=== PATIENT | female | born 1940 | race Caucasian/White ===

== ENCOUNTER 2016-08-09 16:48 | Emergency (ER) | payer OTHER ==
[~2016-08-09] VITALS: Ht 162.6 cm; Wt 77.1 kg
[~2016-08-09 16:48] MED LIST: ALBU0.5N2; ALEN70SO OR; BACL20TA PO; CITA-73 PO; ESOM40CA39 PO; FURO40TA4 PO; LORA-622 PO; LORA-655 PO; NAP500T GT; NOR10T PO; TIOTCAP; VALS40TA2 PO; paroxetine PO
[2016-08-09] MEDS ORDERED: KETOROLAC TROMETH 60MG/2ML VIAL IM ONE (19:30)
[2016-08-09 20:43] VITALS: BP 129/68
== END 2016-08-09 21:55 | disposition home or self-care (01) ==
LOC: EDUNIT# 16:48 → ER 16:53
DX: S52.501A Unspecified fracture of the lower end of right radius, initial encounter for closed fracture (principal); S82.832A Other fracture of upper and lower end of left fibula, initial encounter for closed fracture; J44.9 Chronic obstructive pulmonary disease, unspecified; K21.9 Gastro-esophageal reflux disease without esophagitis; I11.0 Hypertensive heart disease with heart failure; I50.9 Heart failure, unspecified; R51 Headache; F17.210 Nicotine dependence, cigarettes, uncomplicated; Z88.0 Allergy status to penicillin; Z90.710 Acquired absence of both cervix and uterus; W01.0XXA Fall on same level from slipping, tripping and stumbling without subsequent striking against object, initial encounter; Y93.89 Activity, other specified; Y99.8 Other external cause status; Y92.89 Other specified places as the place of occurrence of the external cause
CPT/HCPCS: 29125; 29505; 70450; 73110; 73590; 73600; 96372; 99284; J1885

== ENCOUNTER 2017-07-22 19:31 | Inpatient (IN) | payer OTHER ==
[~2017-07-22] VITALS: Ht 165.1 cm; Wt 74.9 kg
[2017-07-22] MEDS ORDERED: ONDANSETRON HCL 4 MG/2 ML VIAL IV ONE (21:00)
[2017-07-22] MEDS ORDERED: ALBUTEROL SULF 2.5 MG/0.5ML(0.5%) NEB SOLN NEB ONE (21:00)
[2017-07-22] MEDS ORDERED: IPRATROPIUM BROM 0.5 MG/2.5ML INH SOL NEB ONE (21:00)
[2017-07-22] MEDS ORDERED: MORPHINE SULFATE 4 MG/ML SYR/VIAL IV ONE (21:00)
[2017-07-22] MEDS ORDERED: methylPREDNISolone SOD SUCC 125 MG/2 ML VL IV ONE (21:00)
[2017-07-22 21:13] LABS: Basophils # (auto) 0 uL; Hemoglobin 10.7 g/dL (12.2-16.2); White Blood Cell 14.8 10^3/uL (4.4-10.8)
[2017-07-22 21:15] LABS: Basophils % (auto) 0.1 % (0.0-2.0); Eosinophils # (auto) 0 uL; Eosinophils % (auto) 0.2 % (0.0-7.0); Hematocrit 34.8 % (36.0-46.0); Lymphocytes # (auto) 1.4 uL; Lymphocytes % (auto) 9.3 % (10.0-50.0); Mean Corpuscular Hemoglobin 26.3 pg (28.0-32.0); Mean Corpuscular Hgb Conc. 30.9 g/dL (32.0-36.0); Mean Corpuscular Volume 85.2 fL (80.0-100.0); Monocytes % (auto) 6.7 % (0.0-12.0); Neutrophils # (auto) 12.4 uL; Neutrophils % (auto) 83.7 % (37.0-80.0); Nucleated Red Blood Cells % 0.1 %; Red Blood Cells 4.08 10^6/uL (4.0-5.20); Red Cell Distribution Width 15.1 % (11.8-14.3)
[2017-07-22 21:30] LABS: INR 0.99 (0.9-1.15); Partial Thromboplastin Time 25.9 sec (22.64-33.71); Prothrombin Time 10.8 sec (9.37-12.3)
[2017-07-22 21:33] LABS: Albumin 3.1 g/dL (3.4-5.0); BUN/Creatinine Ratio 12.6; Bilirubin, Total 0.4 mg/dL (0.2-1.0); Magnesium 2.3 mg/dL (1.6-2.6); Potassium 4.1 mmol/L (3.5-5.1)
[2017-07-22 22:50] LABS: Urine Bacteria NONE SEEN /hpf (None Seen); Urine Blood Negative /uL (Negative); Urine Hyaline Cast FEW /lpf (0 - 2); Urine Mucus FEW (None Seen); Urine Specific Gravity 1.015 (1.001-1.035); Urine WBC 22 /hpf (0 - 5)
[2017-07-22 23:08] LABS: Platelet Count (auto) 158 10^3/uL (140-450)
[2017-07-23] MEDS ORDERED: MORPHINE SULFATE 4 MG/ML SYR/VIAL IV ONE (01:30)
[2017-07-23] MEDS ORDERED: SODIUM CHLORIDE 0.9% 1,000 ML IV ONE (01:30)
[2017-07-23] MEDS ORDERED: ONDANSETRON HCL 4 MG/2 ML VIAL IV ONE (01:30)
[2017-07-23] MEDS ORDERED: cefTRIAXone 1GM/10ml IVPUSH 10 ML IV ONE (01:30)
[2017-07-23] MEDS ORDERED: ATROPINE SULF 0.5 MG/5ML SYR IV ONE (02:45)
[2017-07-23] MEDS ORDERED: diphenhdrAMINE HCL 50 MG/1 ML VL IV ONE (03:30)
[2017-07-23] MEDS ORDERED: DOCUSATE SOD 100 MG CAP PO PRN (05:00)
[2017-07-23] MEDS ORDERED: NITROGLYCERIN 0.4 MG SL TAB SL PRN (05:00)
[2017-07-23] MEDS ORDERED: MORPHINE SULFATE 4 MG/ML SYR/VIAL IV PRN (05:00)
[2017-07-23] MEDS ORDERED: ACETAMINOPHEN 325 MG TAB PO PRN (05:00)
[2017-07-23] MEDS ORDERED: ONDANSETRON HCL 4 MG/2 ML VIAL IV PRN (05:00)
[2017-07-23 07:40] VITALS: BP 136/55
[2017-07-23 09:17] VITALS: BP 147/63
[2017-07-23 09:40] VITALS: BP 143/107
[2017-07-23] MEDS ORDERED: FUROSEMIDE 40 MG TAB PO SCH (10:00)
[2017-07-23] MEDS ORDERED: LEVOFLOXACIN 500MG 100 ML IV SCH (10:00)
[2017-07-23] MEDS: VALSARTAN 80 MG TAB PO SCH (11:07)
[2017-07-23] MEDS: CITALOPRAM HYDROBR 20 MG TAB PO SCH (11:07)
[2017-07-23] MEDS: ENOXAPARIN SOD 40 MG/0.4 ML SYRINGE SC SCH (11:08)
[2017-07-23] MEDS: FAMOTIDINE 20 MG TAB PO SCH ×2 (11:08→21:36)
[2017-07-23] MEDS: ALBUTEROL SULF 2.5 MG/0.5ML(0.5%) NEB SOLN NEB PRN (13:30)
[2017-07-23] MEDS: IPRATROPIUM BROM 0.5 MG/2.5ML INH SOL NEB PRN ×2 (13:30→18:42)
[2017-07-23] MEDS ORDERED: FUROSEMIDE 20 MG/2 ML VIAL IV ONE (14:00)
[2017-07-23] MEDS: methylPREDNISolone SOD SUCC 40 MG/ML VL IV SCH ×2 (15:41→21:36)
[2017-07-23] MEDS ORDERED: AML5T PO (15:55)
[2017-07-23] MEDS: ALBUTEROL SULF 2.5 MG/0.5ML(0.5%) NEB SOLN NEB SCH (18:42)
[2017-07-23 19:10] VITALS: BP 104/40
[2017-07-23] MEDS: HYDROcodone-ACET 5/325MG TAB PO PRN (19:52)
[2017-07-23 20:00] VITALS: BP 135/71
[2017-07-23 22:15] VITALS: BP 135/71
[2017-07-24] MEDS: IPRATROPIUM BROM 0.5 MG/2.5ML INH SOL NEB PRN ×2 (00:10→16:15)
[2017-07-24] MEDS: ALBUTEROL SULF 2.5 MG/0.5ML(0.5%) NEB SOLN NEB SCH ×3 (00:10→12:31)
[2017-07-24] MEDS: ALBUTEROL SULF 2.5 MG/0.5ML(0.5%) NEB SOLN NEB PRN ×2 (04:10→16:15)
[2017-07-24 04:35] VITALS: BP 158/82
[2017-07-24] MEDS: methylPREDNISolone SOD SUCC 40 MG/ML VL IV SCH ×2 (05:40→14:00)
[2017-07-24] MEDS: HYDROcodone-ACET 5/325MG TAB PO PRN ×2 (05:41→10:15)
[2017-07-24 07:25] LABS: Albumin 2.5 g/dL (3.4-5.0); BUN/Creatinine Ratio 17.7; Bilirubin, Total 0.3 mg/dL (0.2-1.0); Calcium 8.5 mg/dL (8.5-10.1); Magnesium 2.4 mg/dL (1.6-2.6); Potassium 4.5 mmol/L (3.5-5.1); Total Protein 5.8 g/dL (6.4-8.2)
[2017-07-24 07:52] LABS: Basophils # (auto) 0 uL; Basophils % (auto) 0.1 % (0.0-2.0); Eosinophils # (auto) 0 uL; Hematocrit 30.7 % (36.0-46.0); Lymphocytes % (auto) 12.1 % (10.0-50.0); Mean Corpuscular Hemoglobin 26.6 pg (28.0-32.0); Monocytes # (auto) 0.8 uL; Nucleated Red Blood Cells % 0.2 %; Red Cell Distribution Width 14.6 % (11.8-14.3)
[2017-07-24 07:54] LABS: Hemoglobin 9.8 g/dL (12.2-16.2); Mean Corpuscular Hgb Conc. 31.9 g/dL (32.0-36.0); Mean Corpuscular Volume 83.6 fL (80.0-100.0); Neutrophils # (auto) 6.4 uL; Neutrophils % (auto) 77.8 % (37.0-80.0); Red Blood Cells 3.68 10^6/uL (4.0-5.20); White Blood Cell 8.2 10^3/uL (4.4-10.8)
[2017-07-24 08:00] VITALS: BP 156/81
[2017-07-24 08:45] LABS: Platelet Count (auto) 99 10^3/uL (140-450)
[2017-07-24] MEDS ORDERED: FUROSEMIDE 40 MG/4 ML VIAL IV SCH (10:00)
[2017-07-24] MEDS ORDERED: LEVOFLOXACIN 250MG 50 ML IV SCH (10:00)
[2017-07-24] MEDS: FAMOTIDINE 20 MG TAB PO SCH (10:15)
[2017-07-24] MEDS: ENOXAPARIN SOD 40 MG/0.4 ML SYRINGE SC SCH (10:15)
[2017-07-24] MEDS: VALSARTAN 80 MG TAB PO SCH (10:17)
[2017-07-24] MEDS: CITALOPRAM HYDROBR 20 MG TAB PO SCH (10:34)
[2017-07-24 12:11] VITALS: BP 152/84
[2017-07-24 17:00] VITALS: BP 161/80
== END 2017-07-24 16:55 | disposition home or self-care (01) | DRG 871 ==
LOC: ER 19:31 → EDBD 19:31 → TELE 19:32 → TELE-CENTR 07-23 17:56
PROVIDERS: ADMIT Nurse Practitioner; ATTEND Family Medicine
PROC: 5A09357 Assistance with Respiratory Ventilation, Less than 24 Consecutive Hours, Continuous Positive Airway Pressure (ICD-10-PCS; principal; 2017-07-23)
DX: A41.9 Sepsis, unspecified organism (principal); J96.20 Acute and chronic respiratory failure, unspecified whether with hypoxia or hypercapnia; I50.9 Heart failure, unspecified; I11.0 Hypertensive heart disease with heart failure; N39.0 Urinary tract infection, site not specified; W06.XXXA Fall from bed, initial encounter; J44.9 Chronic obstructive pulmonary disease, unspecified; W18.30XA Fall on same level, unspecified, initial encounter; F17.210 Nicotine dependence, cigarettes, uncomplicated; K21.9 Gastro-esophageal reflux disease without esophagitis; I49.8 Other specified cardiac arrhythmias; E66.9 Obesity, unspecified; F32.9 Major depressive disorder, single episode, unspecified; S39.012A Strain of muscle, fascia and tendon of lower back, initial encounter; T78.49XA Other allergy, initial encounter; F41.9 Anxiety disorder, unspecified; K59.00 Constipation, unspecified; Y92.003 Bedroom of unspecified non-institutional (private) residence as the place of occurrence of the external cause; Z82.49 Family history of ischemic heart disease and other diseases of the circulatory system; Z99.81 Dependence on supplemental oxygen; Z90.710 Acquired absence of both cervix and uterus; Z68.27 Body mass index [BMI] 27.0-27.9, adult; Y93.89 Activity, other specified; Y99.8 Other external cause status; Z88.0 Allergy status to penicillin; Z79.899 Other long term (current) drug therapy
CPT/HCPCS: 36415; 36600; 51702; 71045; 74176; 80053; 81001; 82805; 83735; 83880; 84484; 85025; 85610; 85730; 87040; 93005; 93306; 94640; 94660; 96365; 96372; 96375; 97163; J1956; J2405

== ENCOUNTER 2017-07-31 22:00 | Inpatient (IN) | payer OTHER ==
[~2017-07-31] VITALS: Ht 162.6 cm; Wt 66.1 kg
[~2017-07-31 22:00] MED LIST changes: +AML5T PO; -VALS40TA2 PO; -paroxetine PO
[2017-07-31] MEDS ORDERED: SODIUM CHLORIDE 0.9% 1,000 ML IV ONE (23:59)
[2017-08-01 00:32] LABS: Basophils # (auto) 0 uL; Basophils % (auto) 0.1 % (0.0-2.0); Hematocrit 32.8 % (36.0-46.0); Hemoglobin 10.3 g/dL (12.2-16.2); Lymphocytes # (auto) 0.8 uL; Mean Corpuscular Hemoglobin 26.1 pg (28.0-32.0)
[2017-08-01 00:34] LABS: Eosinophils # (auto) 0 uL; Eosinophils % (auto) 0.8 % (0.0-7.0); Lymphocytes % (auto) 14.6 % (10.0-50.0); Mean Corpuscular Hgb Conc. 31.3 g/dL (32.0-36.0); Mean Corpuscular Volume 83.5 fL (80.0-100.0); Monocytes # (auto) 0.9 uL; Monocytes % (auto) 14.9 % (0.0-12.0); Neutrophils % (auto) 69.6 % (37.0-80.0); Platelet Count (auto) 284 10^3/uL (140-450); Red Blood Cells 3.93 10^6/uL (4.0-5.20); Red Cell Distribution Width 14.4 % (11.8-14.3); White Blood Cell 5.7 10^3/uL (4.4-10.8)
[2017-08-01 00:48] LABS: Alanine Aminotransferase 17 U/L (13-56); Albumin 2.6 g/dL (3.4-5.0); Aspartate Aminotransferase 14 U/L (15-37); BUN/Creatinine Ratio 21.4; Blood Alcohol < 3.0 mg/dL (0-5); Blood Urea Nitrogen 30 mg/dL (7-18); Calcium 8.9 mg/dL (8.5-10.1); Chloride 92 mmol/L (98-107); GFR African American 47 mL/min; GFR Non-African American 39 mL/min; Glucose 96 mg/dL (74-106); Magnesium 2.1 mg/dL (1.6-2.6); Potassium 3.3 mmol/L (3.5-5.1); Sodium 141 mmol/L (136-145)
[2017-08-01 00:52] LABS: INR 0.95 (0.9-1.15); Partial Thromboplastin Time 24.7 sec (22.64-33.71); Prothrombin Time 10.3 sec (9.37-12.3)
[2017-08-01 00:54] LABS: Alkaline Phosphatase 69 U/L (45-117); Bilirubin, Total 0.3 mg/dL (0.2-1.0)
[2017-08-01] MEDS ORDERED: methylPREDNISolone SOD SUCC 125 MG/2 ML VL IV ONE (01:00)
[2017-08-01] MEDS ORDERED: IPRATROPIUM BROM 0.5 MG/2.5ML INH SOL NEB ONE (01:00)
[2017-08-01] MEDS ORDERED: ALBUTEROL SULF 2.5 MG/0.5ML(0.5%) NEB SOLN NEB ONE (01:00)
[2017-08-01 01:11] LABS: Anion Gap -5 (5-15)
[2017-08-01 01:14] LABS: CRP High Sensitivity 8.95 mg/dL (< 0.3); Carbon Dioxide 54 mmol/L (21-32)
[2017-08-01] MEDS ORDERED: ENOXAPARIN SOD 60 MG/0.6 ML SYRINGE SC ONE (02:15)
[2017-08-01] MEDS ORDERED: NITROGLYCERIN 0.4MG/HR TOPICAL PATCH TD ONE (02:15)
[2017-08-01] MEDS ORDERED: PIPERACILLIN-TAZO 4.5GM 50 ML IV ONE (02:15)
[2017-08-01] MEDS ORDERED: ASPirin 325 MG TAB PO ONE (02:15)
[2017-08-01] MEDS ORDERED: SODIUM CHLORIDE 0.9% 1,000 ML IV ONE (02:15)
[2017-08-01 05:03] VITALS: BP 140/53
[2017-08-01] MEDS ORDERED: ONDANSETRON HCL 4 MG/2 ML VIAL IV PRN (06:45)
[2017-08-01] MEDS ORDERED: NITROGLYCERIN 0.4 MG SL TAB SL PRN (06:45)
[2017-08-01] MEDS ORDERED: ACETAMINOPHEN 325 MG TAB PO PRN (06:45)
[2017-08-01] MEDS ORDERED: MORPHINE SULFATE 4 MG/ML SYR/VIAL IV PRN (06:45)
[2017-08-01] MEDS: amLODIPine BESYLATE 5 MG TAB PO SCH (10:00)
[2017-08-01] MEDS: LEVOFLOXACIN 250MG 50 ML IV SCH (10:00)
[2017-08-01] MEDS: PANTOPRAZOLE 40 MG TAB PO SCH (10:00)
[2017-08-01] MEDS: FUROSEMIDE 40 MG TAB PO SCH (10:00)
[2017-08-01] MEDS ORDERED: ENOXAPARIN SOD 30 MG/0.3 ML SYRINGE SC SCH (10:00)
[2017-08-01] MEDS: CITALOPRAM HYDROBR 20 MG TAB PO SCH (10:00)
[2017-08-01 12:40] LABS: Albumin 2.4 g/dL (3.4-5.0); BUN/Creatinine Ratio 21.4; Bilirubin, Total 0.6 mg/dL (0.2-1.0); Calcium 8.4 mg/dL (8.5-10.1); Potassium 3.7 mmol/L (3.5-5.1); Total Protein 5.7 g/dL (6.4-8.2)
[2017-08-01 12:45] LABS: Basophils # (auto) 0 uL; Eosinophils # (auto) 0 uL; Hematocrit 30.9 % (36.0-46.0); Hemoglobin 9.6 g/dL (12.2-16.2); Lymphocytes # (auto) 0.3 uL; Lymphocytes % (auto) 6.8 % (10.0-50.0); Mean Corpuscular Hgb Conc. 31.2 g/dL (32.0-36.0); Mean Corpuscular Volume 83.1 fL (80.0-100.0); Monocytes # (auto) 0.1 uL; Monocytes % (auto) 2.5 % (0.0-12.0); Neutrophils # (auto) 4.6 uL; Neutrophils % (auto) 90.7 % (37.0-80.0); Platelet Count (auto) 263 10^3/uL (140-450); Red Blood Cells 3.71 10^6/uL (4.0-5.20); Red Cell Distribution Width 14.6 % (11.8-14.3); White Blood Cell 5.1 10^3/uL (4.4-10.8)
[2017-08-01] MEDS: IPRATROPIUM BROM 0.5 MG/2.5ML INH SOL NEB PRN ×2 (13:15→19:02)
[2017-08-01] MEDS: ALBUTEROL SULF 2.5 MG/0.5ML(0.5%) NEB SOLN NEB PRN ×2 (13:15→19:02)
[2017-08-01] MEDS ORDERED: BACL10TA PO (20:53)
[2017-08-01 20:54] VITALS: BP 136/40
[2017-08-02] MEDS: ALBUTEROL SULF 2.5 MG/0.5ML(0.5%) NEB SOLN NEB PRN (01:29)
[2017-08-02] MEDS: IPRATROPIUM BROM 0.5 MG/2.5ML INH SOL NEB PRN (01:29)
[2017-08-02 05:36] VITALS: BP 148/66
[2017-08-02 06:34] LABS: Basophils # (auto) 0 uL; Eosinophils # (auto) 0 uL; Monocytes # (auto) 0.9 uL; Neutrophils # (auto) 3.7 uL
[2017-08-02 06:40] LABS: Basophils % (auto) 0.8 % (0.0-2.0); Eosinophils % (auto) 0.5 % (0.0-7.0); Hematocrit 29.7 % (36.0-46.0); Hemoglobin 9.3 g/dL (12.2-16.2); Mean Corpuscular Hemoglobin 26.3 pg (28.0-32.0); Mean Corpuscular Hgb Conc. 31.5 g/dL (32.0-36.0); Mean Corpuscular Volume 83.5 fL (80.0-100.0); Monocytes % (auto) 16.3 % (0.0-12.0); Neutrophils % (auto) 64.4 % (37.0-80.0); Platelet Count (auto) 276 10^3/uL (140-450); Red Blood Cells 3.55 10^6/uL (4.0-5.20); Red Cell Distribution Width 14.6 % (11.8-14.3); White Blood Cell 5.8 10^3/uL (4.4-10.8)
[2017-08-02 06:48] LABS: Albumin 2.3 g/dL (3.4-5.0); Potassium 3.3 mmol/L (3.5-5.1)
[2017-08-02 06:51] LABS: Bilirubin, Total 0.2 mg/dL (0.2-1.0); Total Protein 5.5 g/dL (6.4-8.2)
[2017-08-02] MEDS: HYDROcodone-ACET 5/325MG TAB PO PRN ×3 (07:57→22:39)
[2017-08-02 08:20] VITALS: BP 138/56
[2017-08-02] MEDS: LEVOFLOXACIN 250MG 50 ML IV SCH (09:51)
[2017-08-02] MEDS: PANTOPRAZOLE 40 MG TAB PO SCH (09:52)
[2017-08-02] MEDS: CITALOPRAM HYDROBR 20 MG TAB PO SCH (09:52)
[2017-08-02] MEDS: FUROSEMIDE 40 MG TAB PO SCH (09:53)
[2017-08-02] MEDS: amLODIPine BESYLATE 5 MG TAB PO SCH (09:53)
[2017-08-02] MEDS: ENOXAPARIN SOD 40 MG/0.4 ML SYRINGE SC SCH (09:55)
[2017-08-02 11:59] VITALS: BP 131/50
[2017-08-02] MEDS ORDERED: POTASSIUM CHL 10 Meq TABLET PO ONE (14:00)
[2017-08-02 16:29] VITALS: BP 154/62
[2017-08-02 22:00] VITALS: BP 148/65
[2017-08-02] MEDS ORDERED: MIRTAZAPINE 30 MG TAB PO SCH (22:00)
[2017-08-03 04:49] VITALS: BP 146/47
[2017-08-03] MEDS: HYDROcodone-ACET 5/325MG TAB PO PRN ×2 (05:00→09:56)
[2017-08-03] MEDS: IPRATROPIUM BROM 0.5 MG/2.5ML INH SOL NEB PRN (06:29)
[2017-08-03] MEDS: ALBUTEROL SULF 2.5 MG/0.5ML(0.5%) NEB SOLN NEB PRN (06:29)
[2017-08-03 06:42] LABS: Calcium 8.2 mg/dL (8.5-10.1); Potassium 3.2 mmol/L (3.5-5.1)
[2017-08-03 08:58] VITALS: BP 142/51
[2017-08-03] MEDS: FUROSEMIDE 40 MG TAB PO SCH (09:56)
[2017-08-03] MEDS: ENOXAPARIN SOD 40 MG/0.4 ML SYRINGE SC SCH (09:57)
[2017-08-03] MEDS: amLODIPine BESYLATE 5 MG TAB PO SCH (09:57)
[2017-08-03] MEDS: PANTOPRAZOLE 40 MG TAB PO SCH (09:57)
[2017-08-03] MEDS: LEVOFLOXACIN 250MG 50 ML IV SCH (09:57)
[2017-08-03] MEDS: CITALOPRAM HYDROBR 20 MG TAB PO SCH (09:57)
[2017-08-03 13:00] VITALS: BP 123/52
[2017-08-03] MEDS ORDERED: ACETAMINOPHEN/CODEINE#3 (300/30mg) TAB PO PRN (14:00)
[2017-08-03 14:27] VITALS: BP 123/52
== END 2017-08-03 16:00 | disposition home or self-care (01) | DRG 183 ==
LOC: EDBD 22:00 → ER 22:02 → OVERFLOW 22:03 → TELE-EAST 08-01 19:39 → TELE-WESTW 08-01 19:39
PROVIDERS: ADMIT Nurse Practitioner; ATTEND Internal Medicine Geriatric Medicine
PROC: 5A09357 Assistance with Respiratory Ventilation, Less than 24 Consecutive Hours, Continuous Positive Airway Pressure (ICD-10-PCS; principal; 2017-08-01)
DX: S22.41XA Multiple fractures of ribs, right side, initial encounter for closed fracture (principal); G93.49 Other encephalopathy; J44.1 Chronic obstructive pulmonary disease with (acute) exacerbation; N18.3 Chronic kidney disease, stage 3 (moderate); I13.0 Hypertensive heart and chronic kidney disease with heart failure and stage 1 through stage 4 chronic kidney disease, or unspecified chronic kidney disease; I50.9 Heart failure, unspecified; R00.1 Bradycardia, unspecified; F41.9 Anxiety disorder, unspecified; G89.29 Other chronic pain; M54.9 Dorsalgia, unspecified; F32.9 Major depressive disorder, single episode, unspecified; W18.39XA Other fall on same level, initial encounter; K21.9 Gastro-esophageal reflux disease without esophagitis; Z82.49 Family history of ischemic heart disease and other diseases of the circulatory system; Z90.710 Acquired absence of both cervix and uterus; Z87.440 Personal history of urinary (tract) infections; Z88.0 Allergy status to penicillin; Z79.899 Other long term (current) drug therapy; Y93.89 Activity, other specified; Y92.89 Other specified places as the place of occurrence of the external cause; Y99.8 Other external cause status
CPT/HCPCS: 36415; 36600; 70450; 71045; 80048; 80053; 80320; 82140; 82805; 83605; 83735; 83880; 84443; 84484; 85025; 85610; 85730; 86141; 87081; 93005; 94640; 94660; 94761; 96361; 96365; 96372; 96375; G0378; J2543

== ENCOUNTER 2017-11-24 22:01 | Inpatient (IN) | payer OTHER ==
[~2017-11-24] VITALS: Ht 162.6 cm; Wt 69.8 kg
[~2017-11-24 22:01] MED LIST changes: +ALBU1.257 IN; +ALPR0.5T7 PO; +BACL10TA PO; +CITA-77 PO; +FLUT250M2 INH; +POTA1080 PO; +RISP0.5T45 PO
[2017-11-24 22:49] LABS: Basophils # (auto) 0 uL; Eosinophils # (auto) 0.1 uL; Lymphocytes # (auto) 0.7 uL; Red Blood Cells 4.01 10^6/uL (4.0-5.20)
[2017-11-24 22:51] LABS: Basophils % (auto) 0.1 % (0.0-2.0); Eosinophils % (auto) 0.9 % (0.0-7.0); Hematocrit 32.3 % (36.0-46.0); Hemoglobin 10.1 g/dL (12.2-16.2); Lymphocytes % (auto) 6.8 % (10.0-50.0); Mean Corpuscular Hemoglobin 25.2 pg (28.0-32.0); Mean Corpuscular Hgb Conc. 31.3 g/dL (32.0-36.0); Mean Corpuscular Volume 80.6 fL (80.0-100.0); Monocytes # (auto) 0.8 uL; Monocytes % (auto) 7.7 % (0.0-12.0); Neutrophils % (auto) 84.5 % (37.0-80.0); Platelet Count (auto) 220 10^3/uL (140-450); Red Cell Distribution Width 15.9 % (11.8-14.3); White Blood Cell 10.6 10^3/uL (4.4-10.8)
[2017-11-24 23:17] LABS: Albumin 2.9 g/dL (3.4-5.0); BUN/Creatinine Ratio 23.6; Bilirubin, Total 0.2 mg/dL (0.2-1.0); Magnesium 2.2 mg/dL (1.6-2.6); Total Protein 6.4 g/dL (6.4-8.2)
[2017-11-25 03:00] VITALS: BP 140/73
[2017-11-25] MEDS ORDERED: ALBUTEROL SULF 2.5 MG/0.5ML(0.5%) NEB SOLN NEB ONE (03:30)
[2017-11-25] MEDS ORDERED: IPRATROPIUM BROM 0.5 MG/2.5ML INH SOL NEB ONE (03:30)
[2017-11-25 03:45] VITALS: BP 140/73
[2017-11-25] MEDS ORDERED: LORazepam 2MG/ML-1ML VIAL IV ONE (06:00)
[2017-11-25] MEDS ORDERED: ACETAMINOPHEN 500 MG TAB PO PRN (07:00)
[2017-11-25] MEDS ORDERED: ONDANSETRON HCL 4 MG/2 ML VIAL IV PRN (07:00)
[2017-11-25] MEDS ORDERED: HYDROcodone-ACET 5/325MG TAB PO PRN (07:00)
[2017-11-25] MEDS ORDERED: LORazepam 0.5 MG TAB PO PRN (07:00)
[2017-11-25 07:26] LABS: Basophils # (auto) 0 uL; Hemoglobin 9.8 g/dL (12.2-16.2); Lymphocytes # (auto) 0.9 uL; Mean Corpuscular Volume 80.6 fL (80.0-100.0); Monocytes # (auto) 0.7 uL; Neutrophils # (auto) 7.8 uL
[2017-11-25 07:29] LABS: Basophils % (auto) 0.1 % (0.0-2.0); Eosinophils # (auto) 0.1 uL; Eosinophils % (auto) 0.6 % (0.0-7.0); Hematocrit 30.8 % (36.0-46.0); Lymphocytes % (auto) 9.2 % (10.0-50.0); Mean Corpuscular Hemoglobin 25.7 pg (28.0-32.0); Mean Corpuscular Hgb Conc. 31.9 g/dL (32.0-36.0); Monocytes % (auto) 7.6 % (0.0-12.0); Neutrophils % (auto) 82.5 % (37.0-80.0); Platelet Count (auto) 206 10^3/uL (140-450); Red Blood Cells 3.82 10^6/uL (4.0-5.20); Red Cell Distribution Width 15.3 % (11.8-14.3); White Blood Cell 9.4 10^3/uL (4.4-10.8)
[2017-11-25 07:44] LABS: Calcium 8.9 mg/dL (8.5-10.1); Potassium 4.1 mmol/L (3.5-5.1)
[2017-11-25] MEDS: DOXYCYCLINE 100MG/250ML 250 ML IV SCH ×2 (08:54→19:00)
[2017-11-25] MEDS: methylPREDNISolone SOD SUCC 40 MG/ML VL IV SCH ×3 (08:54→23:53)
[2017-11-25 09:30] LABS: Urine Bacteria FEW /hpf (None Seen); Urine Blood Negative /uL (Negative); Urine Specific Gravity 1.016 (1.001-1.035); Urine WBC 31 /hpf (0 - 5)
[2017-11-25] MEDS: CITALOPRAM HYDROBR 20 MG TAB PO SCH (10:28)
[2017-11-25] MEDS: amLODIPine BESYLATE 5 MG TAB PO SCH (10:28)
[2017-11-25] MEDS: risperiDONE 1 MG TAB PO SCH ×2 (10:29→22:07)
[2017-11-25] MEDS: PANTOPRAZOLE 40 MG TAB PO SCH (10:29)
[2017-11-25] MEDS: IPRATROPIUM BROM 0.5 MG/2.5ML INH SOL NEB PRN ×3 (11:15→19:20)
[2017-11-25] MEDS: ALBUTEROL SULF 2.5 MG/0.5ML(0.5%) NEB SOLN NEB SCH ×3 (11:15→19:20)
[2017-11-25] MEDS ORDERED: ALBUTEROL SULF 2.5 MG/0.5ML(0.5%) NEB SOLN NEB SCH (12:00)
[2017-11-25] MEDS ORDERED: IPRATROPIUM BROM 0.5 MG/2.5ML INH SOL NEB SCH (12:00)
[2017-11-25 17:13] VITALS: BP 134/72
[2017-11-25 17:30] VITALS: BP 134/72
[2017-11-25] MEDS: FUROSEMIDE 40 MG TAB PO SCH (20:18)
[2017-11-25 22:00] VITALS: BP 127/71
[2017-11-26 05:01] VITALS: BP 132/70
[2017-11-26] MEDS: DOXYCYCLINE 100MG/250ML 250 ML IV SCH (06:01)
[2017-11-26] MEDS: FUROSEMIDE 40 MG TAB PO SCH (06:01)
[2017-11-26 06:10] LABS: BUN/Creatinine Ratio 29.8; Calcium 8.8 mg/dL (8.5-10.1); Magnesium 2.3 mg/dL (1.6-2.6); Potassium 4.1 mmol/L (3.5-5.1)
[2017-11-26] MEDS: ALBUTEROL SULF 2.5 MG/0.5ML(0.5%) NEB SOLN NEB SCH ×3 (06:28→10:54)
[2017-11-26 08:34] VITALS: BP 120/59
[2017-11-26] MEDS: CITALOPRAM HYDROBR 20 MG TAB PO SCH (09:31)
[2017-11-26] MEDS: methylPREDNISolone SOD SUCC 40 MG/ML VL IV SCH (09:31)
[2017-11-26] MEDS: PANTOPRAZOLE 40 MG TAB PO SCH (09:32)
[2017-11-26] MEDS: amLODIPine BESYLATE 5 MG TAB PO SCH (09:34)
[2017-11-26 09:43] LABS: Basophils # (auto) 0 uL; Basophils % (auto) 0.7 % (0.0-2.0); Eosinophils # (auto) 0 uL; Hematocrit 31.3 % (36.0-46.0); Hemoglobin 9.8 g/dL (12.2-16.2); Lymphocytes # (auto) 0.8 uL; Lymphocytes % (auto) 11.8 % (10.0-50.0); Mean Corpuscular Hemoglobin 25.1 pg (28.0-32.0); Mean Corpuscular Hgb Conc. 31.3 g/dL (32.0-36.0); Mean Corpuscular Volume 80.3 fL (80.0-100.0); Monocytes # (auto) 0.4 uL; Neutrophils # (auto) 5.4 uL; Neutrophils % (auto) 81.5 % (37.0-80.0); Nucleated Red Blood Cells % 0.1 %; Platelet Count (auto) 195 10^3/uL (140-450); Red Blood Cells 3.89 10^6/uL (4.0-5.20); Red Cell Distribution Width 15.6 % (11.8-14.3); White Blood Cell 6.6 10^3/uL (4.4-10.8)
[2017-11-26] MEDS ORDERED: ENOXAPARIN SOD 40 MG/0.4 ML SYRINGE SC SCH (10:00)
[2017-11-26] MEDS ORDERED: ENOXAPARIN SOD 30 MG/0.3 ML SYRINGE SC SCH (10:00)
[2017-11-26 12:47] VITALS: BP 135/69
[2017-11-26] MEDS: risperiDONE 1 MG TAB PO SCH (14:19)
== END 2017-11-26 13:40 | disposition home or self-care (01) | DRG 189 ==
LOC: EDBD 22:01 → ER 22:01 → TELE 22:02 → TELE-WESTW 11-25 17:21
PROVIDERS: ADMIT Nurse Practitioner Family; ATTEND Family Medicine
PROC: 5A09357 Assistance with Respiratory Ventilation, Less than 24 Consecutive Hours, Continuous Positive Airway Pressure (ICD-10-PCS; principal; 2017-11-25)
DX: J96.22 Acute and chronic respiratory failure with hypercapnia (principal); J44.1 Chronic obstructive pulmonary disease with (acute) exacerbation; E87.2 Acidosis; D64.9 Anemia, unspecified; I50.9 Heart failure, unspecified; I11.0 Hypertensive heart disease with heart failure; F17.210 Nicotine dependence, cigarettes, uncomplicated; F41.9 Anxiety disorder, unspecified; I25.10 Atherosclerotic heart disease of native coronary artery without angina pectoris; I48.91 Unspecified atrial fibrillation; K21.9 Gastro-esophageal reflux disease without esophagitis; F32.9 Major depressive disorder, single episode, unspecified; Z79.899 Other long term (current) drug therapy; Z79.51 Long term (current) use of inhaled steroids; Z82.49 Family history of ischemic heart disease and other diseases of the circulatory system; Z90.710 Acquired absence of both cervix and uterus; Z99.81 Dependence on supplemental oxygen
CPT/HCPCS: 36415; 36600; 70450; 71045; 80048; 80053; 81001; 82805; 83735; 83880; 84484; 85025; 93005; 93970; 94640; 94660; 96365; 96375; 99291; J3490

== ENCOUNTER 2018-08-24 22:15 | Inpatient (IN) | payer OTHER | END 2018-08-28 18:32 | disposition home or self-care (01) | LOC: TELE 08-25 02:39 → TELE-WESTW 08-26 18:13 → ER 22:15 | DX: J18.1 Lobar pneumonia, unspecified organism (principal); J96.00 Acute respiratory failure, unspecified whether with hypoxia or hypercapnia; J44.0 Chronic obstructive pulmonary disease with (acute) lower respiratory infection; J44.1 Chronic obstructive pulmonary disease with (acute) exacerbation; I13.0 Hypertensive heart and chronic kidney disease with heart failure and stage 1 through stage 4 chronic kidney disease, or unspecified chronic kidney disease; N18.3 Chronic kidney disease, stage 3 (moderate); R00.0 Tachycardia, unspecified ==

== ENCOUNTER 2018-09-12 14:24 | Emergency (ER) | payer OTHER ==
[~2018-09-12] VITALS: Ht 165.1 cm; Wt 68.0 kg
[~2018-09-12 14:24] MED LIST changes: -ALEN70SO OR; -BACL20TA PO; -CITA-73 PO; -ESOM40CA39 PO; -LORA-655 PO; -NAP500T GT; -TIOTCAP
[2018-09-12 15:25] LABS: Basophils # (auto) 0 uL; Basophils % (auto) 0.3 % (0.0-2.0); Eosinophils # (auto) 0.1 uL; Lymphocytes # (auto) 1.1 uL; Mean Corpuscular Hemoglobin 26.4 pg (28.0-32.0)
[2018-09-12 15:40] LABS: Albumin 2.4 g/dL (3.4-5.0); BUN/Creatinine Ratio 16.9; Calcium 8.5 mg/dL (8.5-10.1); Potassium 3.7 mmol/L (3.5-5.1)
[2018-09-12 15:43] LABS: Bilirubin, Total 0.2 mg/dL (0.2-1.0); Total Protein 5.9 g/dL (6.4-8.2)
[2018-09-12 15:44] LABS: Eosinophils % (auto) 1.4 % (0.0-7.0); Hematocrit 33.1 % (36.0-46.0); Hemoglobin 10.5 g/dL (12.2-16.2); Lymphocytes % (auto) 14.4 % (10.0-50.0); Mean Corpuscular Hgb Conc. 31.7 g/dL (32.0-36.0); Mean Corpuscular Volume 83.2 fL (80.0-100.0); Monocytes # (auto) 0.7 uL; Monocytes % (auto) 9.6 % (0.0-12.0); Neutrophils # (auto) 5.7 uL; Neutrophils % (auto) 74.3 % (37.0-80.0); Red Blood Cells 3.97 10^6/uL (4.0-5.20); Red Cell Distribution Width 15.1 % (11.8-14.3); White Blood Cell 7.7 10^3/uL (4.4-10.8)
[2018-09-12 16:02] LABS: Magnesium 1.8 mg/dL (1.6-2.6)
[2018-09-12 17:09] LABS: Platelet Count (auto) 163 10^3/uL (140-450)
[2018-09-12 18:44] LABS: Urine Bacteria NONE SEEN /hpf (None Seen); Urine Blood Negative /uL (Negative); Urine Specific Gravity 1.008 (1.001-1.035); Urine WBC 2 /hpf (0 - 5)
[2018-09-12 21:00] VITALS: BP 102/55
== END 2018-09-12 21:33 | disposition home or self-care (01) ==
LOC: EDUNIT# 14:24 → EDBD 14:24 → ER 14:24
DX: J44.9 Chronic obstructive pulmonary disease, unspecified (principal); I11.0 Hypertensive heart disease with heart failure; I50.9 Heart failure, unspecified; F17.210 Nicotine dependence, cigarettes, uncomplicated; Z90.710 Acquired absence of both cervix and uterus
CPT/HCPCS: 36415; 71045; 80053; 81001; 83735; 83880; 84484; 85025; 93005; 94761

== ENCOUNTER 2018-10-24 17:37 | Inpatient (IN) | payer OTHER ==
[~2018-10-24] VITALS: Ht 162.6 cm
[2018-10-24 18:52] LABS: Alanine Aminotransferase 9 U/L (13-56); Albumin 2.4 g/dL (3.4-5.0); Anion Gap 3 (5-15); Blood Urea Nitrogen 26 mg/dL (7-18); Calcium 8.5 mg/dL (8.5-10.1); Chloride 94 mmol/L (98-107); Glucose 94 mg/dL (74-106); Potassium 3.5 mmol/L (3.5-5.1); Sodium 138 mmol/L (136-145)
[2018-10-24 18:57] LABS: Alkaline Phosphatase 75 U/L (45-117); Aspartate Aminotransferase 10 U/L (15-37); Bilirubin, Total 0.5 mg/dL (0.2-1.0); GFR African American 57 mL/min; GFR Non-African American 47 mL/min; Total Protein 6.1 g/dL (6.4-8.2)
[2018-10-24 19:21] LABS: Basophils # (auto) 0 uL; Basophils % (auto) 0.3 % (0.0-2.0); Eosinophils # (auto) 0.1 uL; Hemoglobin 11.5 g/dL (12.2-16.2); Lymphocytes # (auto) 1.7 uL; Mean Corpuscular Hemoglobin 26.2 pg (28.0-32.0); Monocytes # (auto) 1.1 uL; Nucleated Red Blood Cells % 0.1 %
[2018-10-24 19:23] LABS: Eosinophils % (auto) 0.9 % (0.0-7.0); Hematocrit 36.1 % (36.0-46.0); Lymphocytes % (auto) 14.5 % (10.0-50.0); Mean Corpuscular Hgb Conc. 31.7 g/dL (32.0-36.0); Mean Corpuscular Volume 82.6 fL (80.0-100.0); Monocytes % (auto) 9.1 % (0.0-12.0); Neutrophils # (auto) 8.7 uL; Neutrophils % (auto) 75.2 % (37.0-80.0); Red Blood Cells 4.37 10^6/uL (4.0-5.20); White Blood Cell 11.6 10^3/uL (4.4-10.8)
[2018-10-24 20:00] LABS: Carbon Dioxide 41 mmol/L (21-32)
[2018-10-24 20:16] LABS: Platelet Count (auto) 221 10^3/uL (140-450)
[2018-10-24] MEDS ORDERED: methylPREDNISolone SOD SUCC 125 MG/2 ML VL IV ONE (20:30)
[2018-10-24] MEDS ORDERED: DOXYCYCLINE 100MG/250ML 250 ML IV ONE (20:30)
[2018-10-24] MEDS ORDERED: IPRATROPIUM BROM 0.5 MG/2.5ML INH SOL NEB ONE (20:30)
[2018-10-24] MEDS ORDERED: ALBUTEROL SULF 2.5 MG/0.5ML(0.5%) NEB SOLN NEB ONE (20:30)
[2018-10-24 20:55] VITALS: BP 116/62
--- NOTE | 2018-10-24 20:55 | NUR ---
Respiratory note: PT PLACED ON BIPAP PER DR. PHILIP'S ORDER. BIPAP PLUGGED INTO RED OUTLLET, ALARMS ON AND AUDIBLE. AMBU BAG AT BEDSIDE. PT FITTED WITH SIZE MED MASK, NO SKIN BREAKDOWN NOTED, PT STATED HER NOSE WAS SORE PRIOR TO BIPAP INITIATION. PT STATES MASK FIT IS OK. RN AT BEDSIDE, PT ON CONT BEDSIDE MONITORING, WILL CONTINUE TO MONITOR ORDERED.
[2018-10-24 21:17] VITALS: BP 116/62
[2018-10-24] MEDS ORDERED: LORazepam 2MG/ML-1ML VIAL IV ONE (21:30)
[2018-10-24] MEDS ORDERED: ACETAMINOPHEN 500 MG TAB PO PRN (21:45)
[2018-10-24] MEDS ORDERED: HYDROcodone-ACET 5/325MG TAB PO PRN (21:45)
[2018-10-24] MEDS ORDERED: ONDANSETRON HCL 4 MG/2 ML VIAL IV PRN (21:45)
[2018-10-24] MEDS ORDERED: LORazepam 2MG/ML-1ML VIAL IV PRN (21:45)
--- NOTE | 2018-10-24 22:12 | NUR ---
Respiratory note: ABG RESULTS REPORTED TO DR. PHILPI AND SHARLA MOSCOSO DATABASE ADMINISTRATION MANAGER. PT WILL REMAIN IN BIPAP FOR THE NOC, REPEAT ABG IN AM. WILL CONTINUE TO MONITOR.
[2018-10-24 22:44] VITALS: BP 117/61
--- NOTE | 2018-10-24 22:44 | NUR ---
Telemetry admit from ER LISMAURILIO admitted to Telemetry unit after no SBAR received. Patient oriented to YAW ELLIS, RN primary RN, unit, room, bed, and unit policies regarding patient care and visiting hours. Patient now on continuous telemetry monitoring, tele box # 5 and telemetry reading on arrival to unit is ventricular paced at 79 beats per minute. Patient placed on bedside oxygen, weighed by bedscale and encouraged to call if they need something. All questions and concerns addressed, patient verbalized understanding. Bed in lowest locked position, side rails up x2, call light within reach, bed alarm on. Abrasions noted to right leg and non-blanchable redness noted to sacrum, pictures taken and wound care documentation signed and placed in wound care box. Patient states she doesn't "remember how [she] received [her] booboo". No s/s of distress, will round every hour and as needed and continue to monitor.
[2018-10-24] MEDS: ALBUTEROL SULF 2.5 MG/0.5ML(0.5%) NEB SOLN NEB SCH (23:15)
[2018-10-24] MEDS: IPRATROPIUM BROM 0.5 MG/2.5ML INH SOL NEB SCH (23:15)
[2018-10-24] MEDS: risperiDONE 1 MG TAB PO SCH (23:29)
[2018-10-24] MEDS: methylPREDNISolone SOD SUCC 40 MG/ML VL IV SCH (23:29)
[2018-10-24 23:30] VITALS: BP 117/61
[2018-10-25] MEDS: ALBUTEROL SULF 2.5 MG/0.5ML(0.5%) NEB SOLN NEB SCH ×6 (02:44→22:13)
[2018-10-25] MEDS: IPRATROPIUM BROM 0.5 MG/2.5ML INH SOL NEB SCH ×6 (02:45→22:13)
[2018-10-25 05:00] VITALS: BP 129/72
[2018-10-25 06:16] LABS: Potassium 3.9 mmol/L (3.5-5.1)
[2018-10-25 06:24] LABS: BUN/Creatinine Ratio 18.8; Calcium 8.8 mg/dL (8.5-10.1)
[2018-10-25] MEDS: methylPREDNISolone SOD SUCC 40 MG/ML VL IV SCH ×3 (06:51→22:18)
[2018-10-25] MEDS: PANTOPRAZOLE 40 MG TAB PO SCH (06:51)
[2018-10-25] MEDS: FUROSEMIDE 20 MG TAB PO SCH ×2 (06:52→18:49)
--- NOTE | 2018-10-25 07:00 | NUR ---
Respiratory note: PT WAS TAKEN OFF BIPAP PER STONE REPAIRER.MOSCOSO AND ABG RESULTS. PT WAS PLACED ON 3L/M NASAL CANNULA. PT TOLERATING CHANGE WELL. HR 76, RR 18, POX 96%. WILL CONTINUE TO MONITOR PT.
--- NOTE | 2018-10-25 07:10 | NUR ---
Closing Note Patient lying in bed, awake and alert. No s/s of distress. Care endorsed to dayshift RN.
--- NOTE | 2018-10-25 07:20 | NUR ---
Opening Shift Note Assumed care of patient, awake and alert. No S/S of distress and pain but per patient, she feels SOB, her oxygen saturation is at 95%. Instructed on POC-continue IV antibiotics, patient informed to call for assist PRN, will continue to monitor for changes Q1hr and PRN.
[2018-10-25 07:27] LABS: Basophils # (auto) 0 uL; Eosinophils # (auto) 0 uL; Hemoglobin 11.8 g/dL (12.2-16.2); Lymphocytes # (auto) 0.6 uL; Monocytes # (auto) 0.1 uL; Monocytes % (auto) 0.8 % (0.0-12.0); Neutrophils # (auto) 5.7 uL; White Blood Cell 6.4 10^3/uL (4.4-10.8)
[2018-10-25 07:29] LABS: Hematocrit 37.7 % (36.0-46.0); Lymphocytes % (auto) 9.4 % (10.0-50.0); Mean Corpuscular Hgb Conc. 31.2 g/dL (32.0-36.0); Mean Corpuscular Volume 83.5 fL (80.0-100.0); Neutrophils % (auto) 89.8 % (37.0-80.0); Platelet Count (auto) 255 10^3/uL (140-450); Red Blood Cells 4.52 10^6/uL (4.0-5.20); Red Cell Distribution Width 15.3 % (11.8-14.3)
[2018-10-25 08:52] VITALS: BP 130/70
--- NOTE | 2018-10-25 10:00 | NUR ---
WOUND CARE NOTE: IN TO SEE PATIENT AT THIS TIME PER WOUND CARE CONSULT REQUEST. PATIENT WAS NOTED TO HAVE SKIN INTEGRITY ISSUES NOTED UPON ADMIT, WOUND PHOTOS TAKEN, WOUND CONSULT ORDERED AT THAT TIME BY BEDSIDE NURSE FOR REFERENCE. PATIENT ADMITTED TO [facility] WITH DIAGNOSIS OF PNA. SHE HAS CURRENT ANKIT SCORE OF 18. SKIN/WOUND CARE PLAN IN PLACE. PATIENT IS NOTED TO HAVE 3 SMALL ECCHYMOTICF AREAS AND ONE CLOSED ABRASION THAT IS SCABBED TO THE RIGHT LEE. LEFT ALL OPEN TO AIR. PATIENT TURNED TO RIGHT SIDE. SHE IS NOTED TO HAVE VERY DARK RED SKIN TO THE ENTIRE SACRUM/BUTTOCKS, PERINEUM. PATIENT ADMITS THAT SHE WEARS A DIAPER FOR URINARY INCONTINENCE. PATIENT HAS MASD, WITH NO SKIN EROSION NOTED AT THIS TIME. ZGUARD AND OPTIFOAM GENTLE SACRAL DRESSING APPLIED. PATIENT EDUCATED ON WOUND CARE AND DIAPER USAGE AT THIS TIME. PATIENT VERBALIZED UNDERSTANDING. RECOMMEND: BID/PRN APPLICATION WITH ZGUARD AND OPTIFOAM GENTLE SACRAL DRESSING, DIETARY CONSULT, CONTINUED MONITORING BY WOUND CARE TEAM. Addendum: 10/25/18 at 1754 by Cheyanne Torrez RN Amended: Links added.
[2018-10-25] MEDS: DOXYCYCLINE 100MG/250ML 250 ML IV SCH ×2 (10:38→22:18)
[2018-10-25] MEDS: CITALOPRAM HYDROBR 20 MG TAB PO SCH (10:39)
[2018-10-25] MEDS: risperiDONE 1 MG TAB PO SCH ×2 (10:39→22:18)
[2018-10-25] MEDS: amLODIPine BESYLATE 5 MG TAB PO SCH (10:40)
[2018-10-25 13:00] VITALS: BP 122/71
[2018-10-25] MEDS: ALPRAZolam 0.25 MG TAB PO PRN ×2 (13:52→22:18)
[2018-10-25 17:00] VITALS: BP 120/70
--- NOTE | 2018-10-25 19:00 | NUR ---
Closing Note Patient is resting in bed, no signs of respiratory distress, oxygen saturation is at 98% at 3L/min nasal cannula. Call light within reach, bed in lowest position. Care endorsed to night RN.
--- NOTE | 2018-10-25 19:05 | NUR ---
Opening Shift Note Assumed care of patient, eyes closed, respirations even and unlabored, appears asleep. No S/S of distress/SOB or pain. Bed in lowest locked position, side rails up x2, call light within reach. Instructed on POC and to call for assist PRN, will continue to monitor for changes Q1hr and PRN.
[2018-10-25 22:00] VITALS: BP 103/59
[2018-10-26] MEDS: IPRATROPIUM BROM 0.5 MG/2.5ML INH SOL NEB SCH ×6 (02:05→22:28)
[2018-10-26] MEDS: ALBUTEROL SULF 2.5 MG/0.5ML(0.5%) NEB SOLN NEB SCH ×6 (02:05→22:28)
[2018-10-26 05:00] VITALS: BP 140/74
[2018-10-26] MEDS: PANTOPRAZOLE 40 MG TAB PO SCH (06:25)
[2018-10-26] MEDS: methylPREDNISolone SOD SUCC 40 MG/ML VL IV SCH ×3 (06:25→21:10)
[2018-10-26] MEDS: ALPRAZolam 0.25 MG TAB PO PRN ×2 (06:26→14:31)
[2018-10-26] MEDS: FUROSEMIDE 20 MG TAB PO SCH ×2 (06:26→18:08)
--- NOTE | 2018-10-26 06:46 | NUR ---
Closing Note Patient lying in bed, awake and alert. No s/s of distress. Care endorsed to dayshift RN.
--- NOTE | 2018-10-26 07:40 | NUR ---
Opening Shift Note Assumed care of patient, awake and alert on 2l NC. No S/S of distress/SOB or pain. Instructed on POC and to call for assist PRN. Bed at lowest position and call light within reach. Will continue to monitor for changes Q1hr and PRN.
[2018-10-26 08:00] VITALS: BP 113/60
[2018-10-26 08:59] VITALS: BP 113/60
[2018-10-26] MEDS: CITALOPRAM HYDROBR 20 MG TAB PO SCH (09:19)
[2018-10-26] MEDS: risperiDONE 1 MG TAB PO SCH ×2 (09:19→21:11)
[2018-10-26] MEDS: amLODIPine BESYLATE 5 MG TAB PO SCH (09:19)
[2018-10-26] MEDS: DOXYCYCLINE 100MG/250ML 250 ML IV SCH ×2 (09:19→21:11)
[2018-10-26 12:58] VITALS: BP 105/58
--- NOTE | 2018-10-26 13:01 | NUR ---
Patient unable to eat, patient does not have dentures here. Changed Cardiac diet Texture to mechanical soft.
--- NOTE | 2018-10-26 13:14 | NUR ---
paged for RT , patient requests breathing treatment .
--- NOTE | 2018-10-26 14:40 | NUR ---
Marian from [facility] asked for patients medical H&P, Lab work to be faxed to [phone]
[2018-10-26 17:13] VITALS: BP 114/68
--- NOTE | 2018-10-26 18:36 | NUR ---
closing note Patient is comfortably sitting up in bed eating dinner, on 2 L NC, no c/o pain, no s/s of distress noted/stated. Bed at lowest position and call light within reach.
--- NOTE | 2018-10-26 19:35 | NUR ---
Opening Shift Note Assumed care of patient from Candace MONTE. Patient is A/OX4 with even and unlabored respirations. No S/S of distress/SOB noted at this time. O2 sat is 96% on 3L NC. Continuous pulse ox is in place. Bed is in lowest position, locked, and call light is in reach. Patient instructed on POC and to call for assist PRN, will continue to monitor for changes Q1hr and PRN.
[2018-10-26 22:00] VITALS: BP 113/68
--- NOTE | 2018-10-26 22:02 | NUR ---
Respiratory note: PT STATES SHE DOES NOT WANT A TX AT 0200, WILL TAKE THE NEXT ONE IN THE AM. PT AWARE TO CALL IF SHE BECOMES SOB.
[2018-10-27] MEDS: ALPRAZolam 0.25 MG TAB PO PRN ×3 (00:18→16:58)
[2018-10-27] MEDS: ALBUTEROL SULF 2.5 MG/0.5ML(0.5%) NEB SOLN NEB SCH ×4 (01:04→14:08)
[2018-10-27] MEDS: IPRATROPIUM BROM 0.5 MG/2.5ML INH SOL NEB SCH ×4 (01:04→14:08)
[2018-10-27 04:31] VITALS: BP 142/72
[2018-10-27] MEDS: PANTOPRAZOLE 40 MG TAB PO SCH (05:14)
[2018-10-27] MEDS: FUROSEMIDE 20 MG TAB PO SCH ×2 (05:14→18:00)
[2018-10-27 06:21] LABS: Basophils # (auto) 0 uL; Eosinophils # (auto) 0 uL; Hematocrit 39.8 % (36.0-46.0); Mean Corpuscular Volume 82.8 fL (80.0-100.0); Neutrophils # (auto) 9.4 uL
[2018-10-27 06:23] LABS: Basophils % (auto) 0.1 % (0.0-2.0); Hemoglobin 12.6 g/dL (12.2-16.2); Lymphocytes # (auto) 0.8 uL; Lymphocytes % (auto) 7.6 % (10.0-50.0); Mean Corpuscular Hemoglobin 26.2 pg (28.0-32.0); Mean Corpuscular Hgb Conc. 31.7 g/dL (32.0-36.0); Monocytes # (auto) 0.4 uL; Monocytes % (auto) 4.2 % (0.0-12.0); Neutrophils % (auto) 88.1 % (37.0-80.0); Platelet Count (auto) 175 10^3/uL (140-450); White Blood Cell 10.7 10^3/uL (4.4-10.8)
[2018-10-27 06:27] LABS: BUN/Creatinine Ratio 20.4; Magnesium 1.9 mg/dL (1.6-2.6); Potassium 3.9 mmol/L (3.5-5.1)
--- NOTE | 2018-10-27 06:30 | NUR ---
DRESSING CHANGE & ZGUARD PATIENT CLEANED AND PATTED DRY, NEW OPTIFOAM APPLIED, AND ZGUARD TO SURROUNDING AREAS APPLIED. PATIENT REPOSITIONED. PATIENT TOLERATED WELL.
--- NOTE | 2018-10-27 07:07 | NUR ---
CARE TRANSFERRED TO IVÁN MONTE
--- NOTE | 2018-10-27 07:30 | NUR ---
Opening Shift Note Assumed care of patient, comfortably sleeping on 2L on continuos pulse ox, saturations are 97%. No S/S of distress/SOB or pain. Bed at lowest position and call light within reach. Will continue to monitor for changes Q1hr and PRN.
[2018-10-27 08:00] VITALS: BP 137/107
--- NOTE | 2018-10-27 08:00 | NUR ---
Patient c/o difficulty breathing and is asking for anxiety medication. Patients lungs are clear oxygen saturations are 98%. Elevated HOB and attempted to calm patient down verbally. Will medicate as prescribed by MD. Will continue to monitor.
[2018-10-27] MEDS: DOXYCYCLINE 100MG/250ML 250 ML IV SCH (08:38)
[2018-10-27] MEDS: methylPREDNISolone SOD SUCC 40 MG/ML VL IV SCH (08:38)
[2018-10-27] MEDS: amLODIPine BESYLATE 5 MG TAB PO SCH (08:39)
[2018-10-27] MEDS: risperiDONE 1 MG TAB PO SCH (08:39)
[2018-10-27] MEDS: CITALOPRAM HYDROBR 20 MG TAB PO SCH (08:39)
[2018-10-27 09:00] VITALS: BP 129/69
[2018-10-27 13:00] VITALS: BP 132/74
[2018-10-27 15:00] VITALS: BP 120/78
--- NOTE | 2018-10-27 15:53 | NUR ---
IM signed by pt and placed in pt's chart
--- NOTE | 2018-10-27 16:12 | NUR ---
faxed hh order to [facility] for them to set up [facility] [phone]
[2018-10-27 17:11] VITALS: BP 119/77
--- NOTE | 2018-10-27 18:18 | NUR ---
Discharge instructions given as ordered. Encourage to follow up with PMD as instructed. All questions and concerns addressed. Patient verbalized understanding. IV removed with catheter intact, pressure dressing applied. Telemetry unit returned to ICU. Patient taken to vehicle via with personal wheelchair and oxygen tank. All personal belongings with patient, accompanied by staff and family member. No distress noted at time of departure.
== END 2018-10-27 18:20 | disposition home health service (06) | DRG 193 ==
LOC: EDBD 17:37 → EDUNIT# 17:37 → ER 17:43 → TELE-EAST 21:44
PROVIDERS: ADMIT Nurse Practitioner Family; ATTEND Internal Medicine Geriatric Medicine
PROC: 5A09357 Assistance with Respiratory Ventilation, Less than 24 Consecutive Hours, Continuous Positive Airway Pressure (ICD-10-PCS; principal; 2018-10-24)
DX: J18.9 Pneumonia, unspecified organism (principal); J96.22 Acute and chronic respiratory failure with hypercapnia; J44.1 Chronic obstructive pulmonary disease with (acute) exacerbation; J44.0 Chronic obstructive pulmonary disease with (acute) lower respiratory infection; J84.10 Pulmonary fibrosis, unspecified; F41.9 Anxiety disorder, unspecified; I11.0 Hypertensive heart disease with heart failure; I25.10 Atherosclerotic heart disease of native coronary artery without angina pectoris; I48.91 Unspecified atrial fibrillation; I50.9 Heart failure, unspecified; I70.0 Atherosclerosis of aorta; K21.9 Gastro-esophageal reflux disease without esophagitis; F32.9 Major depressive disorder, single episode, unspecified; Z79.51 Long term (current) use of inhaled steroids; Z82.49 Family history of ischemic heart disease and other diseases of the circulatory system; Z87.891 Personal history of nicotine dependence; Z90.710 Acquired absence of both cervix and uterus; Z99.81 Dependence on supplemental oxygen; Z95.0 Presence of cardiac pacemaker; Z88.0 Allergy status to penicillin; Z88.5 Allergy status to narcotic agent; Z79.899 Other long term (current) drug therapy
CPT/HCPCS: 36415; 36600; 71045; 80048; 80053; 82805; 83735; 83880; 84484; 85025; 94640; 94660; 94761; 96365; 96375; 97163; G0378; J3490